=== PATIENT | male | born 1955 | race Caucasian/White ===

== ENCOUNTER 2018-01-12 18:58 | Inpatient (IN) | payer MEDICARE, OTHER ==
[~2018-01-12] VITALS: Ht 190.5 cm; Wt 107.7 kg
[~2018-01-12 18:58] MED LIST: GUAI120015 PO
[2018-01-12 19:39] LABS: BASOPHILS # (AUTO) 0.1 X10'3 (0-0.2); BASOPHILS % (AUTO) 1.3 % (0-1); EOSINOPHILS # (AUTO) 0.4 X10'3 (0-0.9); EOSINOPHILS % (AUTO) 4.8 % (0-6); HEMATOCRIT 47.9 % (42.0-52.0); HEMOGLOBIN 16.4 g/dl (14.0-17.9); LYMPHOCYTES # (AUTO) 2.1 X10'3 (1.1-4.8); LYMPHOCYTES % (AUTO) 24.3 % (21-51); MEAN CORPUSCULAR HGB CONC 34.2 % (33.0-36.5); MEAN CORPUSCULAR VOLUME 102.2 FL (78-98); MEAN PLATELET VOLUME 9.1 FL (7.4-10.4); MONOCYTES # (AUTO) 0.8 X10'3 (0-0.9); MONOCYTES % (AUTO) 9.7 % (2-12); NEUTROPHILS # (AUTO) 5.2 X10'3 (1.8-7.7); NEUTROPHILS % (AUTO) 59.9 % (42-75); PLATELET COUNT 180 X10'3 (140-440); RED BLOOD COUNT 4.68 X10'6 (4.70-6.10); RED CELL DISTRIBUTION WIDTH 13.8 % (11.5-14.5); WHITE BLOOD COUNT 8.6 X10'3 (4.5-11.0)
[2018-01-12 19:50] LABS: PARTIAL THROMBOPLASTIN TIME 26 SECONDS (22-32); PROTHROMBIN TIME 10.4 SECONDS (9.0-12.0)
[2018-01-12 19:53] LABS: ALANINE AMINOTRANSFERASE 42 U/L (12-78); ALBUMIN 3.7 G/DL (3.4-5.0); ALBUMIN/GLOBULIN RATIO 0.9 (1.1-1.5); ALKALINE PHOSPHATASE 79 IU/L (46-116); ANION GAP 9 (8-16); ASPARTATE AMINO TRANSFERASE 23 U/L (10-37); BILIRUBIN,TOTAL 0.4 MG/DL (0.1-1.0); BLOOD UREA NITROGEN 15 MG/DL (7-18); BUN/CREATININE RATIO 10.9 (5.4-32.0); CHLORIDE 106 MMOL/L (99-107); CREATININE 1.37 MG/DL (0.60-1.10); GLUCOSE 85 MG/DL (70-104); POTASSIUM 3.8 MMOL/L (3.5-5.1); SODIUM 143 MMOL/L (135-145); TOTAL CARBON DIOXIDE 28.5 MMOL/L (24-32); TOTAL PROTEIN 7.6 G/DL (6.4-8.2); eGFR 53 ML/MIN
[2018-01-12] MEDS ORDERED: morphine 4 MG/ML inj SYRINge IV ONE ×2 (21:00→23:40)
[2018-01-12] MEDS ORDERED: ondansetron/PF 4mg/2ml inj IV ONE (21:00)
[2018-01-12] MEDS ORDERED: iohexol 350MG/ML 100ml bottle IV ONE (21:01)
[2018-01-12] MEDS ORDERED: nitroGLYCERIN 0.4mg/hour patch TD ONE (23:40)
[2018-01-13] MEDS ORDERED: MULT-1180 (00:15)
[2018-01-13] MEDS ORDERED: OMEP40CA37 PO (00:15)
[2018-01-13] MEDS ORDERED: TIOT18CA3 (00:15)
[2018-01-13] MEDS ORDERED: MILK THISTLE140 M1 (00:15)
[2018-01-13] MEDS ORDERED: ALBU18HF2 INH (00:15)
[2018-01-13] MEDS ORDERED: OMEG1CAP PO (00:15)
[2018-01-13] MEDS ORDERED: ALBU8HFA PO (00:15)
[2018-01-13] MEDS ORDERED: ASPI-1265 PO (00:15)
[2018-01-13] MEDS ORDERED: ADV50250 INH (00:15)
[2018-01-13] MEDS ORDERED: UBID1CAP54 PO (00:15)
[2018-01-13] MEDS ORDERED: mag hydrox/Alum hydrox/simeth 30ml oral suspension PO PRN (00:40)
[2018-01-13] MEDS ORDERED: acetaminophen 325mg tablet PO PRN ×2 (00:40)
[2018-01-13] MEDS ORDERED: magnesium hydroxide 30ml (MOM) UD suspension PO PRN (00:40)
[2018-01-13] MEDS ORDERED: HYDROcodone/acetaminophen 10/325mg tab PO PRN (00:40)
[2018-01-13] MEDS ORDERED: HYDROcodone/acetaminophen 5mg/325mg tablet PO PRN (00:40)
[2018-01-13] MEDS ORDERED: ondansetron/PF 4mg/2ml inj IV PRN (00:40)
[2018-01-13] MEDS ORDERED: normal saline 1000ml 1,000 ML IV SCH (00:40)
[2018-01-13 01:30] VITALS: BP 129/84
[2018-01-13] MEDS ORDERED: enoxaparin 100mg/ml syringe SUBCUT STA (01:44)
[2018-01-13 06:00] VITALS: BP 111/79
[2018-01-13] MEDS ORDERED: SALMETEROL INH SCH (08:00)
[2018-01-13] MEDS ORDERED: FLUTICASONE INH SCH (08:00)
[2018-01-13] MEDS: omega-3 acid ethyl esters 1GM capsule PO SCH ×2 (08:09→20:24)
[2018-01-13] MEDS: pantoprazole 40mg Tablet.DR PO SCH (08:11)
[2018-01-13] MEDS: aspirin 81mg tab.chew PO SCH (08:13)
[2018-01-13] MEDS: albuterol 2.5 MG/3 ML nebule NEB SCH ×2 (08:16→11:45)
[2018-01-13] MEDS: BUDESONIDE 0.25 MG/2 ML AMPUL.NEB IH SCH ×2 (08:16→21:14)
[2018-01-13] MEDS: morphine 4 MG/ML inj SYRINge IV PRN (11:47)
[2018-01-13] MEDS: nitroGLYCERIN 0.2mg/hour patch TD SCH (12:41)
[2018-01-13] MEDS: metoprolol tartrate 12.5mg (1/2 tablet) PO SCH ×2 (12:41→20:24)
[2018-01-13 15:00] VITALS: BP 109/70
[2018-01-13 19:00] VITALS: BP 115/84
[2018-01-13] MEDS: enoxaparin 80mg/0.8ml syringe SUBCUT SCH (20:25)
[2018-01-13] MEDS: enoxaparin 30mg/0.3ml syringe SUBCUT SCH (20:27)
[2018-01-13] MEDS ORDERED: temazepam 15mg capsule PO PRN (21:00)
[2018-01-13 22:00] VITALS: BP 119/76
[2018-01-14] VITALS (17 sets, daily range): BP systolic 90–152; BP diastolic 52–89
[2018-01-14] MEDS: morphine 4 MG/ML inj SYRINge IV PRN ×5 (04:20→21:19)
[2018-01-14 06:25] LABS: BASOPHILS % (AUTO) 0.5 % (0-1); EOSINOPHILS # (AUTO) 0.3 X10'3 (0-0.9); EOSINOPHILS % (AUTO) 4.9 % (0-6); HEMATOCRIT 43.5 % (42.0-52.0); HEMOGLOBIN 15.1 g/dl (14.0-17.9); LYMPHOCYTES # (AUTO) 1.7 X10'3 (1.1-4.8); LYMPHOCYTES % (AUTO) 23.4 % (21-51); MEAN CORPUSCULAR HEMOGLOBIN 35.4 PG (27.0-31.0); MEAN CORPUSCULAR HGB CONC 34.8 % (33.0-36.5); MEAN CORPUSCULAR VOLUME 101.6 FL (78-98); MEAN PLATELET VOLUME 9.4 FL (7.4-10.4); MONOCYTES # (AUTO) 0.8 X10'3 (0-0.9); MONOCYTES % (AUTO) 11.6 % (2-12); NEUTROPHILS # (AUTO) 4.3 X10'3 (1.8-7.7); NEUTROPHILS % (AUTO) 59.6 % (42-75); PLATELET COUNT 139 X10'3 (140-440); RED BLOOD COUNT 4.28 X10'6 (4.70-6.10); RED CELL DISTRIBUTION WIDTH 13.9 % (11.5-14.5); WHITE BLOOD COUNT 7.1 X10'3 (4.5-11.0)
[2018-01-14 06:46] LABS: ALANINE AMINOTRANSFERASE 35 U/L (12-78); ALBUMIN 3.2 G/DL (3.4-5.0); ALBUMIN/GLOBULIN RATIO 0.9 (1.1-1.5); ALKALINE PHOSPHATASE 62 IU/L (46-116); ANION GAP 7 (8-16); ASPARTATE AMINO TRANSFERASE 37 U/L (10-37); BILIRUBIN,TOTAL 0.7 MG/DL (0.1-1.0); BLOOD UREA NITROGEN 11 MG/DL (7-18); BUN/CREATININE RATIO 9.6 (5.4-32.0); CALCIUM 8.7 MG/DL (8.5-10.1); CHLORIDE 106 MMOL/L (99-107); CHOL/HDL RATIO 4.4 (0.00-4.99); CHOLESTEROL 203 MG/DL (0-200); CREATININE 1.14 MG/DL (0.60-1.10); GLUCOSE 80 MG/DL (70-104); HDL CHOLESTEROL 46 MG/DL (35-60); LDL CHOLESTEROL 147 MG/DL (50-100); POTASSIUM 4.3 MMOL/L (3.5-5.1); SODIUM 141 MMOL/L (135-145); TOTAL CARBON DIOXIDE 28.5 MMOL/L (24-32); TOTAL PROTEIN 6.8 G/DL (6.4-8.2); TRIGLYCERIDES 68 MG/DL (20-135); eGFR 65 ML/MIN
[2018-01-14] MEDS: albuterol 2.5 MG/3 ML nebule NEB SCH ×5 (07:00→20:02)
[2018-01-14] MEDS: nitroGLYCERIN 0.2mg/hour patch TD SCH (07:11)
[2018-01-14] MEDS: omega-3 acid ethyl esters 1GM capsule PO SCH ×2 (07:14→20:32)
[2018-01-14] MEDS: enoxaparin 30mg/0.3ml syringe SUBCUT SCH ×2 (07:15→20:00)
[2018-01-14] MEDS: metoprolol tartrate 12.5mg (1/2 tablet) PO SCH (07:15)
[2018-01-14] MEDS: aspirin 81mg tab.chew PO SCH (07:15)
[2018-01-14] MEDS: enoxaparin 80mg/0.8ml syringe SUBCUT SCH ×2 (07:15→20:00)
[2018-01-14] MEDS: pantoprazole 40mg Tablet.DR PO SCH (07:15)
[2018-01-14] MEDS: Potassium Cl inj 20 MEQ in normal saline 1000ml 1,000 ML IV SCH ×2 (07:19→14:03)
[2018-01-14] MEDS: BUDESONIDE 0.25 MG/2 ML AMPUL.NEB IH SCH ×2 (09:34→20:02)
[2018-01-14] MEDS ORDERED: LIDOcaine 1% 30ml preserv. free vial ONE (09:41)
[2018-01-14] MEDS ORDERED: iohexol 350 MG/ML 50ML vial IV ONE (09:41)
[2018-01-14] MEDS ORDERED: midazolam 2 mg/2 ml injection ONE ×2 (09:41→10:13)
[2018-01-14] MEDS ORDERED: iohexol 350MG/ML 100ml bottle IV ONE (09:41)
[2018-01-14] MEDS ORDERED: fentaNYL/PF 50MCG/1 ML 2ML syringe ONE (09:42)
[2018-01-14] MEDS ORDERED: diphenhydrAMINE 50 mg/ml inj ONE (10:05)
[2018-01-14] MEDS ORDERED: metoprolol tartrate 1mg/ml inj IV ONE (10:34)
[2018-01-14] MEDS ORDERED: heparin 1,000unit/ml 10ml vial 10 ML ONE (10:51)
[2018-01-14] MEDS ORDERED: aspirin 81mg tab.chew PO ONE ×2 (11:50→13:25)
[2018-01-14] MEDS ORDERED: sodium chloride 0.45% 1,000 ML IV SCH (11:50)
[2018-01-14] MEDS ORDERED: nitroGLYCERIN 0.4mg SUBLingual tab SL PRN (11:50)
[2018-01-14] MEDS ORDERED: nitroGLYCERIN-Tridil 50MG/D5W 250 ML IV PRN ×2 (11:50→13:30)
[2018-01-14] MEDS ORDERED: OXAZEpam 15mg capsule PO PRN ×2 (11:55→13:30)
[2018-01-14] MEDS ORDERED: cyclobenzaprine 10mg tablet PO PRN ×2 (11:55→13:30)
[2018-01-14] MEDS ORDERED: acetaminophen 325mg tablet PO PRN ×2 (11:55→13:30)
[2018-01-14] MEDS ORDERED: dextrose 50%-water 50ml dispensing syringe IV PRN (11:55)
[2018-01-14] MEDS ORDERED: HYDROcodone/acetaminophen 10/325mg tab PO PRN ×2 (11:55)
[2018-01-14] MEDS ORDERED: morphine 4 MG/ML inj SYRINge IV PRN (11:55)
[2018-01-14] MEDS ORDERED: MESSAGE TO NURSING PO ONE ×2 (11:55)
[2018-01-14] MEDS ORDERED: magnesium hydroxide 30ml (MOM) UD suspension PO PRN ×2 (11:55→13:30)
[2018-01-14] MEDS ORDERED: proCHLORperazine 10 MG/2 ml inj IV PRN ×2 (11:55→13:30)
[2018-01-14] MEDS ORDERED: morphine 10mg/ml inj. IV PRN ×2 (11:55→13:30)
[2018-01-14 13:31] LABS: CLARITY,URINE CLEAR (Clear); COLOR,URINE STRAW (Yellow); GLUCOSE, URINE NEGATIVE (Neg); KETONES,URINE TRACE mg/dl (Neg); LEUKOCYTE ESTERASE ,URINE NEGATIVE (Neg); NITRITES, URINE NEGATIVE (Neg); OCCULT BLOOD,URINE NEGATIVE (Neg); PROTEIN,URINE NEGATIVE (Neg); UROBILINOGEN,URINE 0.2 E.U/dL (0.2-1.0)
[2018-01-14 13:32] LABS: UA COLLECTION TYPE NON-SPECIFIED
[2018-01-14 13:39] LABS: ALBUMIN 3.2 G/DL (3.4-5.0); ANION GAP 8 (8-16); BLOOD UREA NITROGEN 11 MG/DL (7-18); BUN/CREATININE RATIO 11.1 (5.4-32.0); CALCIUM 8.4 MG/DL (8.5-10.1); CHLORIDE 106 MMOL/L (99-107); CHOL/HDL RATIO 4.4 (0.00-4.99); CHOLESTEROL 209 MG/DL (0-200); CREATININE 0.99 MG/DL (0.60-1.10); GLUCOSE 71 MG/DL (70-104); HDL CHOLESTEROL 48 MG/DL (35-60); LDL CHOLESTEROL 145 MG/DL (50-100); POTASSIUM 3.9 MMOL/L (3.5-5.1); SODIUM 139 MMOL/L (135-145); TOTAL CARBON DIOXIDE 25.2 MMOL/L (24-32); TRIGLYCERIDES 35 MG/DL (20-135); eGFR 77 ML/MIN
[2018-01-14 13:40] LABS: HEMOGLOBIN A1C 5.7 % (4.5-6.2)
[2018-01-14 13:45] LABS: INR 1.1 INR; PROTHROMBIN TIME 11.4 SECONDS (9.0-12.0)
[2018-01-14 13:50] LABS: PARTIAL THROMBOPLASTIN TIME 120 SECONDS (22-32)
[2018-01-14] MEDS: sodium chloride 0.45% 1,000 ML IV SCH (16:55)
[2018-01-14] MEDS ORDERED: docusate sod 100mg capsule PO SCH (20:00)
[2018-01-14] MEDS: docusate sod 100mg capsule PO SCH (20:00)
[2018-01-14] MEDS: atorvastatin 20mg tablet PO SCH (20:31)
[2018-01-14] MEDS: metoprolol tartrate 25mg tablet PO SCH (20:32)
[2018-01-15] VITALS (24 sets, daily range): BP systolic 78–144; BP diastolic 53–92
[2018-01-15] MEDS: morphine 4 MG/ML inj SYRINge IV PRN ×3 (00:27→11:20)
[2018-01-15 02:44] LABS: BASOPHILS % (AUTO) 0.2 % (0-1); EOSINOPHILS # (AUTO) 0.3 X10'3 (0-0.9); EOSINOPHILS % (AUTO) 3.7 % (0-6); HEMATOCRIT 43.3 % (42.0-52.0); HEMOGLOBIN 14.8 g/dl (14.0-17.9); LYMPHOCYTES % (AUTO) 12.3 % (21-51); MEAN CORPUSCULAR HEMOGLOBIN 35.1 PG (27.0-31.0); MEAN CORPUSCULAR HGB CONC 34.2 % (33.0-36.5); MEAN CORPUSCULAR VOLUME 102.7 FL (78-98); MEAN PLATELET VOLUME 9.5 FL (7.4-10.4); MONOCYTES # (AUTO) 0.7 X10'3 (0-0.9); NEUTROPHILS # (AUTO) 6.2 X10'3 (1.8-7.7); NEUTROPHILS % (AUTO) 75.8 % (42-75); PLATELET COUNT 135 X10'3 (140-440); RED BLOOD COUNT 4.21 X10'6 (4.70-6.10); RED CELL DISTRIBUTION WIDTH 13.8 % (11.5-14.5); WHITE BLOOD COUNT 8.1 X10'3 (4.5-11.0)
[2018-01-15 02:56] LABS: ALBUMIN 2.9 G/DL (3.4-5.0); ANION GAP 7 (8-16); BLOOD UREA NITROGEN 11 MG/DL (7-18); BUN/CREATININE RATIO 11.6 (5.4-32.0); CALCIUM 8.2 MG/DL (8.5-10.1); CHLORIDE 104 MMOL/L (99-107); CREATININE 0.95 MG/DL (0.60-1.10); GLUCOSE 109 MG/DL (70-104); POTASSIUM 4.1 MMOL/L (3.5-5.1); SODIUM 137 MMOL/L (135-145); TOTAL CARBON DIOXIDE 25.6 MMOL/L (24-32); eGFR 80 ML/MIN
[2018-01-15] MEDS ORDERED: MESSAGE TO NURSING PO ONE (05:30)
[2018-01-15] MEDS: heparin 10,000 units/1 ML INJ IV PRN ×2 (06:01→17:56)
[2018-01-15] MEDS: sodium chloride 0.45% 1,000 ML IV SCH (06:05)
[2018-01-15] MEDS ORDERED: lisinopril 2.5mg tablet PO SCH ×2 (08:00)
[2018-01-15] MEDS: omega-3 acid ethyl esters 1GM capsule PO SCH ×2 (08:12→20:39)
[2018-01-15] MEDS: metoprolol tartrate 25mg tablet PO SCH ×2 (08:12→19:42)
[2018-01-15] MEDS: aspirin 81mg tab.chew PO SCH (08:12)
[2018-01-15] MEDS: docusate sod 100mg capsule PO SCH ×2 (08:13→20:39)
[2018-01-15] MEDS: atorvastatin 20mg tablet PO SCH (08:13)
[2018-01-15] MEDS: pantoprazole 40mg Tablet.DR PO SCH (08:13)
[2018-01-15] MEDS: albuterol 2.5 MG/3 ML nebule NEB SCH ×4 (08:14→21:23)
[2018-01-15] MEDS: BUDESONIDE 0.25 MG/2 ML AMPUL.NEB IH SCH ×2 (08:14→21:23)
[2018-01-15] MEDS: HYDROcodone/acetaminophen 10/325mg tab PO PRN ×3 (08:14→17:41)
[2018-01-15 17:10] LABS: ABG BASE EXCESS -0.6 mmol/L (-2.0-3.0); ABG OXYGEN SATURATION 91.2 % (95-98); ABG PCO2 (T) 35.4 mmHg (35.0-48.0); ABG PH (T) 7.431 (7.350-7.450); ALLEN'S TEST Positive; FCOHb 0.7 % (0.5-1.5); FLOW 2 L/min; FMetHb 0.2 % (0.3-1.12); FO2Hb 90.4 % (94-100); TOTAL HEMOGLOBIN 16.1 G/dl (14.0-18.0)
[2018-01-16] VITALS (19 sets, daily range): BP systolic 96–124; BP diastolic 56–75
[2018-01-16] MEDS: HYDROcodone/acetaminophen 10/325mg tab PO PRN ×2 (00:05→20:12)
[2018-01-16] MEDS: sodium chloride 0.45% 1,000 ML IV SCH ×2 (00:06→12:23)
[2018-01-16 00:40] LABS: BASOPHILS % (AUTO) 0.2 % (0-1); EOSINOPHILS # (AUTO) 0.1 X10'3 (0-0.9); EOSINOPHILS % (AUTO) 1.4 % (0-6); HEMATOCRIT 43.8 % (42.0-52.0); HEMOGLOBIN 15.1 g/dl (14.0-17.9); LYMPHOCYTES # (AUTO) 0.8 X10'3 (1.1-4.8); LYMPHOCYTES % (AUTO) 7.4 % (21-51); MEAN CORPUSCULAR HEMOGLOBIN 35.3 PG (27.0-31.0); MEAN CORPUSCULAR HGB CONC 34.6 % (33.0-36.5); MONOCYTES # (AUTO) 0.7 X10'3 (0-0.9); MONOCYTES % (AUTO) 6.6 % (2-12); NEUTROPHILS # (AUTO) 8.8 X10'3 (1.8-7.7); NEUTROPHILS % (AUTO) 84.4 % (42-75); PLATELET COUNT 130 X10'3 (140-440); RED BLOOD COUNT 4.29 X10'6 (4.70-6.10); RED CELL DISTRIBUTION WIDTH 13.6 % (11.5-14.5); WHITE BLOOD COUNT 10.4 X10'3 (4.5-11.0)
[2018-01-16 00:51] LABS: ALBUMIN 2.9 G/DL (3.4-5.0); ANION GAP 6 (8-16); BLOOD UREA NITROGEN 15 MG/DL (7-18); BUN/CREATININE RATIO 11.9 (5.4-32.0); CALCIUM 8.4 MG/DL (8.5-10.1); CHLORIDE 103 MMOL/L (99-107); CREATININE 1.26 MG/DL (0.60-1.10); GLUCOSE 95 MG/DL (70-104); SODIUM 138 MMOL/L (135-145); eGFR 58 ML/MIN
[2018-01-16] MEDS ORDERED: MESSAGE TO NURSING PO ONE ×2 (01:30→05:30)
[2018-01-16] MEDS ORDERED: vancomycin/NS 1 GM ADD-VANTAGE 250 ML IV ONE (05:30)
[2018-01-16] MEDS ORDERED: cefazolin/dext.iso 2gm/50ml 50 ML IV ONE (05:30)
[2018-01-16] MEDS ORDERED: famotidine 20mg tablet PO ONE (06:00)
[2018-01-16] MEDS ORDERED: LORazepam 2 mg/ml vial IV ONE (06:00)
[2018-01-16] MEDS: ringers solution, lacted 1,000 ML IV SCH (06:07)
[2018-01-16] MEDS ORDERED: LORazepam 2 mg/ml vial ONE (06:31)
[2018-01-16] MEDS ORDERED: heparin 10,000 units/1 ML INJ IR ONE (07:00)
[2018-01-16] MEDS ORDERED: papaverine 30 mg/ml 2ml inj. IA ONE (07:00)
[2018-01-16] MEDS: albuterol 2.5 MG/3 ML nebule NEB SCH ×4 (07:00→21:25)
[2018-01-16] MEDS ORDERED: SUFENTANIL CITRATE 50 MCG/ML 2ml ampule IV ONE ×2 (07:03→08:21)
[2018-01-16] MEDS ORDERED: MIDAZolam 1mg/ml 10ml vial ONE (07:03)
[2018-01-16] MEDS ORDERED: propofol inj 20 ML IV ONE (07:05)
[2018-01-16] MEDS ORDERED: aminocaproic acid 250 MG/1 ML inj. ONE (07:09)
[2018-01-16] MEDS ORDERED: heparin 1,000 units/ml 10ml inj ONE (07:09)
[2018-01-16] MEDS ORDERED: sodium bicarbonate (8.4%) 1 mEq/ml syringe ONE (07:09)
[2018-01-16] MEDS ORDERED: sevoflurane 250ml liquid IH ONE (07:09)
[2018-01-16] MEDS ORDERED: LIDOcaine 2% (20 mg/ml) 5ml cardiac syringe ONE (07:09)
[2018-01-16] MEDS ORDERED: phenylephrine 10mg/ml inj. ONE (07:09)
[2018-01-16] MEDS ORDERED: pancuronium br 1mg/ml inj IV ONE ×2 (07:09→11:13)
[2018-01-16] MEDS ORDERED: potassium Cl 2 mEq/ml inj IV ONE (07:09)
[2018-01-16] MEDS ORDERED: albumin (human) 25% 100 ML IV solution IV ONE (07:09)
[2018-01-16] MEDS ORDERED: protamine sulf. 10mg/ml inj. IV ONE (07:09)
[2018-01-16] MEDS ORDERED: magnesium sulf 1 GM/2 ML ONE (07:09)
[2018-01-16] MEDS ORDERED: calcium chloride 100 MG/1 ML inj IV ONE (07:09)
[2018-01-16] MEDS ORDERED: methylPREDNISolone sod. succ. 500mg inj ONE (07:09)
[2018-01-16] MEDS ORDERED: heparin 10,000 units/1 ML INJ ONE ×2 (07:09→09:00)
[2018-01-16] MEDS ORDERED: mupirocin 2% nasal ointment 1gm UD NS SCH (08:00)
[2018-01-16] MEDS: BUDESONIDE 0.25 MG/2 ML AMPUL.NEB IH SCH ×2 (08:00→21:26)
[2018-01-16] MEDS: omega-3 acid ethyl esters 1GM capsule PO SCH ×2 (08:00→20:08)
[2018-01-16] MEDS: atorvastatin 20mg tablet PO SCH (08:00)
[2018-01-16 08:01] LABS: ABG BASE EXCESS -2.6 mmol/L (-2.0-3.0); ABG HCO3 25.1 mmol/L (22.0-26.0); ABG OXYGEN SATURATION 99.6 % (95-98); ABG PCO2 55.6 mmHg (35.0-45.0); ABG PH 7.273 (7.350-7.450); ABG PO2 318.4 mmHg (60.0-100.0); CL (ABG) 104 mmol/L (99-107); FCOHb 0.5 % (0.5-1.5); FMetHb 0.4 % (0.3-1.12); FO2Hb 98.7 % (94-100); GLUCOSE (ABG) 90 mg/dl (70-105); IONIZED CA (ABG) 1.15 mmol/L (1.03-1.32); K (ABG) 4.1 mmol/L (3.3-5.1); NA (ABG) 134 mmol/L (135-145); TOTAL HEMOGLOBIN 14.7 G/dl (14.0-18.0)
[2018-01-16] MEDS ORDERED: papaverine 30 mg/ml 2ml inj. ONE (09:00)
[2018-01-16] MEDS: insulin Lispro (HumaLOG) vial - multi-dose SQ SCH ×3 (09:00→18:00)
[2018-01-16 09:10] LABS: ABG BASE EXCESS VENOUS -2.6 mmol/L; ABG HCO3 VENOUS 24.5 mmol/L; ABG PCO2 VENOUS 51.4 mmHg; ABG PO2 VENOUS 61.7 mmHg; CL (ABG) 104 mmol/L (99-107); FCOHb VENOUS 0.9 %; FHHb VENOUS 10.3 %; FMetHb VENOUS 0.2 %; FO2Hb VENOUS 88.6 %; GLUCOSE (ABG) 81 mg/dl (70-105); IONIZED CA (ABG) 1.11 mmol/L (1.03-1.32); K (ABG) 4.7 mmol/L (3.3-5.1); NA (ABG) 133 mmol/L (135-145); TOTAL HEMOGLOBIN 14.7 G/dl (14.0-18.0)
[2018-01-16 09:41] LABS: ABG BASE EXCESS -0.5 mmol/L (-2.0-3.0); ABG HCO3 24.8 mmol/L (22.0-26.0); ABG OXYGEN SATURATION 99.5 % (95-98); ABG PCO2 43.2 mmHg (35.0-45.0); ABG PH 7.377 (7.350-7.450); ABG PO2 546.1 mmHg (60.0-100.0); CL (ABG) 102 mmol/L (99-107); FCOHb 0.1 % (0.5-1.5); FMetHb 0.5 % (0.3-1.12); FO2Hb 98.9 % (94-100); GLUCOSE (ABG) 95 mg/dl (70-105); IONIZED CA (ABG) 1.01 mmol/L (1.03-1.32); K (ABG) 5.6 mmol/L (3.3-5.1); NA (ABG) 130 mmol/L (135-145); TOTAL HEMOGLOBIN 11.8 G/dl (14.0-18.0)
[2018-01-16 10:01] LABS: ABG BASE EXCESS VENOUS -3.3 mmol/L; ABG HCO3 VENOUS 22.1 mmol/L; ABG PCO2 VENOUS 41.5 mmHg; ABG PO2 VENOUS 55.4 mmHg; CL (ABG) 103 mmol/L (99-107); FCOHb VENOUS 0.5 %; FHHb VENOUS 11.9 %; FMetHb VENOUS 0.5 %; FO2Hb VENOUS 87.1 %; GLUCOSE (ABG) 107 mg/dl (70-105); K (ABG) 6.5 mmol/L (3.3-5.1); NA (ABG) 130 mmol/L (135-145); TOTAL HEMOGLOBIN 11.9 G/dl (14.0-18.0)
[2018-01-16] MEDS ORDERED: albumin (Human) 5% 250ml 250 ML IV ONE (10:23)
[2018-01-16 10:26] LABS: ABG BASE EXCESS -1.9 mmol/L (-2.0-3.0); ABG HCO3 22.7 mmol/L (22.0-26.0); ABG OXYGEN SATURATION 99.3 % (95-98); ABG PCO2 37.9 mmHg (35.0-45.0); ABG PH 7.395 (7.350-7.450); ABG PO2 423.9 mmHg (60.0-100.0); CL (ABG) 102 mmol/L (99-107); FCOHb 0.2 % (0.5-1.5); FMetHb 0.5 % (0.3-1.12); FO2Hb 98.6 % (94-100); GLUCOSE (ABG) 110 mg/dl (70-105); IONIZED CA (ABG) 1.14 mmol/L (1.03-1.32); NA (ABG) 129 mmol/L (135-145); TOTAL HEMOGLOBIN 11.3 G/dl (14.0-18.0)
[2018-01-16 10:51] LABS: ABG BASE EXCESS VENOUS -3.5 mmol/L; ABG HCO3 VENOUS 22.7 mmol/L; ABG PCO2 VENOUS 45.4 mmHg; CL (ABG) 102 mmol/L (99-107); FCOHb VENOUS 0.5 %; FHHb VENOUS 14.6 %; FMetHb VENOUS 0.5 %; FO2Hb VENOUS 84.4 %; GLUCOSE (ABG) 99 mg/dl (70-105); IONIZED CA (ABG) 1.17 mmol/L (1.03-1.32); K (ABG) 5.4 mmol/L (3.3-5.1); NA (ABG) 132 mmol/L (135-145); TOTAL HEMOGLOBIN 11.5 G/dl (14.0-18.0)
[2018-01-16] MEDS ORDERED: DOPamine 400mg/D5W 250ml 250 ML IV PRN (11:43)
[2018-01-16] MEDS ORDERED: nitroGLYCERIN-Tridil 50MG/D5W 250 ML IV PRN (11:43)
[2018-01-16] MEDS ORDERED: niCARDipine/sod cl 20mg/200ml 200 ML IV PRN (11:43)
[2018-01-16] MEDS ORDERED: ondansetron/PF 4mg/2ml inj IV PRN (11:45)
[2018-01-16] MEDS ORDERED: Neutra Phos packet PO PRN (11:45)
[2018-01-16] MEDS ORDERED: metoclopramide 5 mg/ml inj IV PRN (11:45)
[2018-01-16] MEDS ORDERED: insulin regular, human inj. 100 UNITS in normal saline 100ml IV soln 100 ML IV SCH ×2 (11:45)
[2018-01-16] MEDS ORDERED: dextrose 50%-water 50ml dispensing syringe IV PRN (11:45)
[2018-01-16] MEDS ORDERED: magnesium 4gm in 100ml NS 100 ML IV PRN (11:45)
[2018-01-16] MEDS ORDERED: potassium Cl 20mEq/100mL bag 100 ML IV PRN ×3 (11:45)
[2018-01-16] MEDS ORDERED: acetaminophen 325mg tablet PO PRN (11:45)
[2018-01-16] MEDS ORDERED: magnesium 1gm/100ml D5W IVPB 100 ML IV PRN (11:45)
[2018-01-16] MEDS ORDERED: sodium phosphate inj. 15 MMOL in dextrose 5%-water 150 ML IV PRN (11:45)
[2018-01-16] MEDS ORDERED: sodium phosphate inj. 30 MMOL in dextrose 5%-water 250 ML IV PRN (11:45)
[2018-01-16] MEDS ORDERED: normal saline 250ml IV soln 250 ML IV PRN (11:45)
[2018-01-16] MEDS ORDERED: magnesium hydroxide 30ml (MOM) UD suspension PO PRN (11:45)
[2018-01-16 12:00] LABS: ABG BASE EXCESS -4.3 mmol/L (-2.0-3.0); ABG HCO3 23.7 mmol/L (22.0-26.0); ABG OXYGEN SATURATION 98.9 % (95-98); ABG PCO2 (T) 55.1 mmHg (35.0-48.0); ABG PH (T) 7.252 (7.350-7.450); FCOHb 0.5 % (0.5-1.5); FMetHb 0.5 % (0.3-1.12); FO2Hb 97.9 % (94-100); MINUTE VOLUME 9 L/min; PATIENT TEMPERATURE 37.2; PEEP 5 cm H2O; RESPIRATORY RATE 12 b/min; RESPIRATORY RATE (OBSERVED) 12 b/min; TIDAL VOLUME 650 mL; TOTAL HEMOGLOBIN 15.4 G/dl (14.0-18.0)
[2018-01-16 12:09] LABS: BASOPHILS % (AUTO) 0.1 % (0-1); EOSINOPHILS # (AUTO) 0.1 X10'3 (0-0.9); EOSINOPHILS % (AUTO) 0.5 % (0-6); HEMATOCRIT 42.4 % (42.0-52.0); HEMOGLOBIN 14.6 g/dl (14.0-17.9); LYMPHOCYTES # (AUTO) 0.9 X10'3 (1.1-4.8); LYMPHOCYTES % (AUTO) 7.5 % (21-51); MEAN CORPUSCULAR HEMOGLOBIN 35.5 PG (27.0-31.0); MEAN CORPUSCULAR HGB CONC 34.5 % (33.0-36.5); MEAN CORPUSCULAR VOLUME 102.9 FL (78-98); MEAN PLATELET VOLUME 9.2 FL (7.4-10.4); MONOCYTES # (AUTO) 0.6 X10'3 (0-0.9); MONOCYTES % (AUTO) 4.8 % (2-12); NEUTROPHILS # (AUTO) 10.3 X10'3 (1.8-7.7); NEUTROPHILS % (AUTO) 87.1 % (42-75); PLATELET COUNT 90 X10'3 (140-440); RED BLOOD COUNT 4.12 X10'6 (4.70-6.10); RED CELL DISTRIBUTION WIDTH 13.3 % (11.5-14.5); WHITE BLOOD COUNT 11.8 X10'3 (4.5-11.0)
[2018-01-16] MEDS: morphine 4 MG/ML inj SYRINge IV PRN ×5 (12:13→22:24)
[2018-01-16 12:19] LABS: INR 1.2 INR; PARTIAL THROMBOPLASTIN TIME 37 SECONDS (22-32)
[2018-01-16 12:23] LABS: ALANINE AMINOTRANSFERASE 24 U/L (12-78); ALBUMIN 2.7 G/DL (3.4-5.0); ALBUMIN/GLOBULIN RATIO 0.9 (1.1-1.5); ALKALINE PHOSPHATASE 44 IU/L (46-116); ANION GAP 6 (8-16); ASPARTATE AMINO TRANSFERASE 53 U/L (10-37); BILIRUBIN,TOTAL 1.2 MG/DL (0.1-1.0); BLOOD UREA NITROGEN 14 MG/DL (7-18); BUN/CREATININE RATIO 12.5 (5.4-32.0); CALCIUM 7.7 MG/DL (8.5-10.1); CHLORIDE 104 MMOL/L (99-107); CREATININE 1.12 MG/DL (0.60-1.10); GLUCOSE 120 MG/DL (70-104); MAGNESIUM 2.5 MG/DL (1.5-2.4); PHOSPHORUS 3.1 MG/DL (2.3-4.5); SODIUM 136 MMOL/L (135-145); TOTAL CARBON DIOXIDE 25.7 MMOL/L (24-32); TOTAL PROTEIN 5.6 G/DL (6.4-8.2); eGFR 66 ML/MIN
[2018-01-16] MEDS ORDERED: insulin Lispro (HumaLOG) vial - multi-dose SQ SCH (13:00)
[2018-01-16] MEDS: albumin (Human) 5% 250ml 250 ML IV PRN ×3 (13:35→15:59)
[2018-01-16 15:21] LABS: ABG BASE EXCESS -5.4 mmol/L (-2.0-3.0); ABG OXYGEN SATURATION 97.8 % (95-98); ABG PCO2 (T) 33.8 mmHg (35.0-48.0); ABG PH (T) 7.367 (7.350-7.450); ABG PO2 (T) 106.5 mmHg (83-108); FCOHb 0.6 % (0.5-1.5); FMetHb 0.2 % (0.3-1.12); MINUTE VOLUME 11 L/min; PATIENT TEMPERATURE 36.9; PEEP 5 cm H2O; RESPIRATORY RATE (OBSERVED) 13 b/min; TOTAL HEMOGLOBIN 14.2 G/dl (14.0-18.0)
[2018-01-16] MEDS: ceFAZolin 1GM/D5W- ADD-VANTAGE 50 ML IV SCH (15:34)
[2018-01-16 18:17] LABS: BASOPHILS % (AUTO) 0 % (0-1); EOSINOPHILS % (AUTO) 0 % (0-6); HEMATOCRIT 37.3 % (42.0-52.0); HEMOGLOBIN 12.8 g/dl (14.0-17.9); LYMPHOCYTES # (AUTO) 0.3 X10'3 (1.1-4.8); LYMPHOCYTES % (AUTO) 3.1 % (21-51); MEAN CORPUSCULAR HEMOGLOBIN 35.2 PG (27.0-31.0); MEAN CORPUSCULAR HGB CONC 34.3 % (33.0-36.5); MEAN CORPUSCULAR VOLUME 102.6 FL (78-98); MEAN PLATELET VOLUME 9.5 FL (7.4-10.4); MONOCYTES # (AUTO) 0.2 X10'3 (0-0.9); NEUTROPHILS # (AUTO) 9.7 X10'3 (1.8-7.7); NEUTROPHILS % (AUTO) 94.9 % (42-75); PLATELET COUNT 83 X10'3 (140-440); RED BLOOD COUNT 3.64 X10'6 (4.70-6.10); RED CELL DISTRIBUTION WIDTH 13.3 % (11.5-14.5); WHITE BLOOD COUNT 10.2 X10'3 (4.5-11.0)
[2018-01-16 18:26] LABS: ALBUMIN 3.2 G/DL (3.4-5.0); ANION GAP 7 (8-16); BLOOD UREA NITROGEN 16 MG/DL (7-18); BUN/CREATININE RATIO 14.7 (5.4-32.0); CALCIUM 7.7 MG/DL (8.5-10.1); CHLORIDE 106 MMOL/L (99-107); CREATININE 1.09 MG/DL (0.60-1.10); GLUCOSE 150 MG/DL (70-104); POTASSIUM 4.6 MMOL/L (3.5-5.1); SODIUM 138 MMOL/L (135-145); TOTAL CARBON DIOXIDE 25.3 MMOL/L (24-32); eGFR 69 ML/MIN
[2018-01-16] MEDS: insulin regular, human inj. 100 UNITS in normal saline 100ml IV soln 100 ML IV SCH ×2 (18:43)
[2018-01-16 18:53] LABS: MAGNESIUM 2.2 MG/DL (1.5-2.4)
[2018-01-16] MEDS: docusate sod 100mg capsule PO SCH (20:08)
[2018-01-16] MEDS: mupirocin 2% nasal ointment 1gm UD NS SCH (20:09)
[2018-01-16] MEDS: vancomycin/NS 1 GM ADD-VANTAGE 250 ML IV SCH (20:16)
[2018-01-17] VITALS (19 sets, daily range): BP systolic 92–128; BP diastolic 54–78
[2018-01-17] MEDS: HYDROcodone/acetaminophen 10/325mg tab PO PRN ×6 (00:13→22:55)
[2018-01-17] MEDS: ringers solution, lacted 1,000 ML IV SCH ×2 (01:05→21:05)
[2018-01-17] MEDS: morphine 4 MG/ML inj SYRINge IV PRN ×4 (01:33→19:34)
[2018-01-17] MEDS: ceFAZolin 1GM/D5W- ADD-VANTAGE 50 ML IV SCH ×4 (01:38→23:55)
[2018-01-17 04:51] LABS: BASOPHILS % (AUTO) 0 % (0-1); EOSINOPHILS # (AUTO) 0.2 X10'3 (0-0.9); EOSINOPHILS % (AUTO) 1.2 % (0-6); HEMATOCRIT 36.7 % (42.0-52.0); HEMOGLOBIN 12.5 g/dl (14.0-17.9); LYMPHOCYTES # (AUTO) 0.6 X10'3 (1.1-4.8); LYMPHOCYTES % (AUTO) 3.9 % (21-51); MEAN CORPUSCULAR HEMOGLOBIN 34.9 PG (27.0-31.0); MEAN CORPUSCULAR HGB CONC 33.9 % (33.0-36.5); MONOCYTES # (AUTO) 0.8 X10'3 (0-0.9); MONOCYTES % (AUTO) 5.7 % (2-12); NEUTROPHILS # (AUTO) 12.9 X10'3 (1.8-7.7); NEUTROPHILS % (AUTO) 89.2 % (42-75); PLATELET COUNT 85 X10'3 (140-440); RED BLOOD COUNT 3.57 X10'6 (4.70-6.10); RED CELL DISTRIBUTION WIDTH 13.5 % (11.5-14.5); WHITE BLOOD COUNT 14.4 X10'3 (4.5-11.0)
[2018-01-17 05:05] LABS: ALANINE AMINOTRANSFERASE 35 U/L (12-78); ALBUMIN/GLOBULIN RATIO 1.1 (1.1-1.5); ALKALINE PHOSPHATASE 34 IU/L (46-116); ANION GAP 8 (8-16); ASPARTATE AMINO TRANSFERASE 93 U/L (10-37); BILIRUBIN,TOTAL 0.6 MG/DL (0.1-1.0); BLOOD UREA NITROGEN 17 MG/DL (7-18); BUN/CREATININE RATIO 15.9 (5.4-32.0); CALCIUM 7.7 MG/DL (8.5-10.1); CHLORIDE 105 MMOL/L (99-107); CREATININE 1.07 MG/DL (0.60-1.10); GLUCOSE 135 MG/DL (70-104); MAGNESIUM 2.1 MG/DL (1.5-2.4); PHOSPHORUS 2.5 MG/DL (2.3-4.5); POTASSIUM 4.4 MMOL/L (3.5-5.1); SODIUM 136 MMOL/L (135-145); TOTAL CARBON DIOXIDE 23.4 MMOL/L (24-32); TOTAL PROTEIN 5.8 G/DL (6.4-8.2); eGFR 70 ML/MIN
[2018-01-17] MEDS: insulin regular, human inj. 100 UNITS in normal saline 100ml IV soln 100 ML IV SCH ×2 (05:30)
[2018-01-17 06:24] LABS: INR 1.1 INR; PROTHROMBIN TIME 11.6 SECONDS (9.0-12.0)
[2018-01-17 06:25] LABS: PARTIAL THROMBOPLASTIN TIME 32 SECONDS (22-32)
[2018-01-17] MEDS: albuterol 2.5 MG/3 ML nebule NEB SCH ×4 (06:45→18:46)
[2018-01-17] MEDS: BUDESONIDE 0.25 MG/2 ML AMPUL.NEB IH SCH ×2 (06:45→18:46)
[2018-01-17] MEDS ORDERED: atorvastatin 10mg tablet PO SCH (08:00)
[2018-01-17] MEDS: pantoprazole 40mg Tablet.DR PO SCH (08:00)
[2018-01-17] MEDS: aspirin 325mg tablet, delayed-release (Ecotrin) PO SCH (08:00)
[2018-01-17] MEDS: atorvastatin 20mg tablet PO SCH (08:00)
[2018-01-17] MEDS: docusate sod 100mg capsule PO SCH ×2 (08:00→20:00)
[2018-01-17] MEDS: omega-3 acid ethyl esters 1GM capsule PO SCH ×2 (08:00→19:34)
[2018-01-17] MEDS: metoprolol tartrate 12.5mg (1/2 tablet) PO SCH ×2 (08:01→20:00)
[2018-01-17] MEDS: vancomycin/NS 1 GM ADD-VANTAGE 250 ML IV SCH ×2 (08:02→19:34)
[2018-01-17] MEDS: mupirocin 2% nasal ointment 1gm UD NS SCH ×2 (08:18→19:35)
[2018-01-17] MEDS: insulin Lispro (HumaLOG) vial - multi-dose SQ SCH (09:00)
[2018-01-17] MEDS: diphenhydrAMINE 25mg capsule PO PRN (20:19)
[2018-01-17] MEDS: albuterol 2.5 MG/3 ML nebule NEB PRN (23:15)
[2018-01-18] VITALS (23 sets, daily range): BP systolic 94–130; BP diastolic 61–83
[2018-01-18] MEDS: albuterol 2.5 MG/3 ML nebule NEB PRN ×2 (03:28→23:58)
[2018-01-18] MEDS: HYDROcodone/acetaminophen 10/325mg tab PO PRN ×4 (03:29→23:59)
[2018-01-18 03:46] LABS: BASOPHILS % (AUTO) 0 % (0-1); EOSINOPHILS % (AUTO) 0.1 % (0-6); HEMATOCRIT 33.3 % (42.0-52.0); HEMOGLOBIN 11.3 g/dl (14.0-17.9); LYMPHOCYTES # (AUTO) 0.7 X10'3 (1.1-4.8); LYMPHOCYTES % (AUTO) 6.5 % (21-51); MEAN CORPUSCULAR VOLUME 102.7 FL (78-98); MEAN PLATELET VOLUME 9.9 FL (7.4-10.4); MONOCYTES # (AUTO) 1.2 X10'3 (0-0.9); MONOCYTES % (AUTO) 10.6 % (2-12); NEUTROPHILS # (AUTO) 9.1 X10'3 (1.8-7.7); NEUTROPHILS % (AUTO) 82.8 % (42-75); PLATELET COUNT 68 X10'3 (140-440); RED BLOOD COUNT 3.24 X10'6 (4.70-6.10); RED CELL DISTRIBUTION WIDTH 13.4 % (11.5-14.5)
[2018-01-18 04:04] LABS: ALBUMIN 2.8 G/DL (3.4-5.0); ANION GAP 5 (8-16); BLOOD UREA NITROGEN 18 MG/DL (7-18); BUN/CREATININE RATIO 17.3 (5.4-32.0); CALCIUM 7.7 MG/DL (8.5-10.1); CHLORIDE 105 MMOL/L (99-107); CREATININE 1.04 MG/DL (0.60-1.10); GLUCOSE 118 MG/DL (70-104); MAGNESIUM 1.9 MG/DL (1.5-2.4); POTASSIUM 4.5 MMOL/L (3.5-5.1); SODIUM 138 MMOL/L (135-145); TOTAL CARBON DIOXIDE 27.9 MMOL/L (24-32); eGFR 72 ML/MIN
[2018-01-18] MEDS: diphenhydrAMINE 25mg capsule PO PRN ×2 (05:27→12:33)
[2018-01-18] MEDS: docusate sod 100mg capsule PO SCH ×2 (07:18→19:43)
[2018-01-18] MEDS: metoprolol tartrate 12.5mg (1/2 tablet) PO SCH ×2 (07:18→19:40)
[2018-01-18] MEDS: omega-3 acid ethyl esters 1GM capsule PO SCH ×2 (07:19→19:44)
[2018-01-18] MEDS: atorvastatin 20mg tablet PO SCH (07:19)
[2018-01-18] MEDS: mupirocin 2% nasal ointment 1gm UD NS SCH (07:19)
[2018-01-18] MEDS: pantoprazole 40mg Tablet.DR PO SCH (07:19)
[2018-01-18] MEDS: aspirin 325mg tablet, delayed-release (Ecotrin) PO SCH (07:20)
[2018-01-18] MEDS: albuterol 2.5 MG/3 ML nebule NEB SCH ×4 (07:29→19:19)
[2018-01-18] MEDS: BUDESONIDE 0.25 MG/2 ML AMPUL.NEB IH SCH ×2 (07:34→19:19)
[2018-01-18] MEDS: morphine 4 MG/ML inj SYRINge IV PRN ×3 (08:55→20:52)
[2018-01-18] MEDS: sodium chloride 0.45% 1,000 ML IV SCH (11:43)
[2018-01-18] MEDS: ringers solution, lacted 1,000 ML IV SCH (17:05)
[2018-01-19] VITALS (16 sets, daily range): BP systolic 94–127; BP diastolic 61–89
[2018-01-19] MEDS: albuterol 2.5 MG/3 ML nebule NEB PRN (04:09)
[2018-01-19] MEDS: HYDROcodone/acetaminophen 10/325mg tab PO PRN ×4 (04:24→19:57)
[2018-01-19 05:34] LABS: BASOPHILS % (AUTO) 0.3 % (0-1); EOSINOPHILS # (AUTO) 0.1 X10'3 (0-0.9); EOSINOPHILS % (AUTO) 1.7 % (0-6); HEMATOCRIT 31.3 % (42.0-52.0); HEMOGLOBIN 10.5 g/dl (14.0-17.9); LYMPHOCYTES # (AUTO) 0.9 X10'3 (1.1-4.8); LYMPHOCYTES % (AUTO) 12.5 % (21-51); MEAN CORPUSCULAR HEMOGLOBIN 34.9 PG (27.0-31.0); MEAN CORPUSCULAR HGB CONC 33.6 % (33.0-36.5); MEAN CORPUSCULAR VOLUME 103.8 FL (78-98); MEAN PLATELET VOLUME 10.4 FL (7.4-10.4); MONOCYTES % (AUTO) 13.2 % (2-12); NEUTROPHILS # (AUTO) 5.5 X10'3 (1.8-7.7); NEUTROPHILS % (AUTO) 72.3 % (42-75); PLATELET COUNT 71 X10'3 (140-440); RED BLOOD COUNT 3.02 X10'6 (4.70-6.10); RED CELL DISTRIBUTION WIDTH 13.6 % (11.5-14.5); WHITE BLOOD COUNT 7.6 X10'3 (4.5-11.0)
[2018-01-19 06:10] LABS: ALBUMIN 2.6 G/DL (3.4-5.0); ANION GAP 7 (8-16); BLOOD UREA NITROGEN 15 MG/DL (7-18); BUN/CREATININE RATIO 15.6 (5.4-32.0); CALCIUM 7.9 MG/DL (8.5-10.1); CHLORIDE 104 MMOL/L (99-107); CREATININE 0.96 MG/DL (0.60-1.10); GLUCOSE 98 MG/DL (70-104); MAGNESIUM 2.1 MG/DL (1.5-2.4); PHOSPHORUS 2.4 MG/DL (2.3-4.5); POTASSIUM 3.8 MMOL/L (3.5-5.1); SODIUM 138 MMOL/L (135-145); TOTAL CARBON DIOXIDE 27.5 MMOL/L (24-32); eGFR 79 ML/MIN
[2018-01-19] MEDS: morphine 4 MG/ML inj SYRINge IV PRN (06:56)
[2018-01-19] MEDS: albuterol 2.5 MG/3 ML nebule NEB SCH ×4 (06:59→19:00)
[2018-01-19] MEDS: BUDESONIDE 0.25 MG/2 ML AMPUL.NEB IH SCH ×2 (06:59→20:14)
[2018-01-19] MEDS ORDERED: magnesium 1gm/100ml D5W IVPB 100 ML IV PRN (07:05)
[2018-01-19] MEDS ORDERED: magnesium Cl slow-release 64mg tablet PO PRN (07:05)
[2018-01-19] MEDS ORDERED: magnesium 4gm in 100ml NS 100 ML IV PRN (07:05)
[2018-01-19] MEDS ORDERED: potassium Cl 40MEQ/NS 500ml 500 ML IV PRN ×2 (07:05)
[2018-01-19] MEDS ORDERED: potassium Cl 20 mEq SR tablet PO PRN ×2 (07:05)
[2018-01-19] MEDS: K and/or MAG REPLACEMENT MC SCH (07:21)
[2018-01-19] MEDS ORDERED: magnesium citrate 296ml oral solution PO ONE (07:25)
[2018-01-19] MEDS: pantoprazole 40mg Tablet.DR PO SCH (07:40)
[2018-01-19] MEDS: metoprolol tartrate 12.5mg (1/2 tablet) PO SCH ×2 (07:41→19:56)
[2018-01-19] MEDS: magnesium Cl slow-release 64mg tablet PO SCH ×2 (07:41→19:56)
[2018-01-19] MEDS: aspirin 81mg tab.chew PO SCH (07:41)
[2018-01-19] MEDS: omega-3 acid ethyl esters 1GM capsule PO SCH ×2 (07:42→19:58)
[2018-01-19] MEDS: potassium Cl 20 mEq SR tablet PO SCH ×2 (07:42→20:00)
[2018-01-19] MEDS: atorvastatin 20mg tablet PO SCH (07:42)
[2018-01-19] MEDS: docusate sod 100mg capsule PO SCH ×2 (07:42→19:55)
[2018-01-19 08:52] LABS: LARGE PLATELETS FEW; PLATELET ESTIMATE DECREASED
[2018-01-20] VITALS (12 sets, daily range): BP systolic 100–132; BP diastolic 67–78
[2018-01-20] MEDS: albuterol 2.5 MG/3 ML nebule NEB PRN (01:34)
[2018-01-20] MEDS: HYDROcodone/acetaminophen 10/325mg tab PO PRN ×5 (02:43→20:31)
[2018-01-20] MEDS ORDERED: amiodarone 150mg/dext, iso-os 100 ML IV ONE (03:25)
[2018-01-20] MEDS: amiodarone/D5 360MG/200ML BAG 200 ML IV SCH ×3 (04:02→17:10)
[2018-01-20 06:09] LABS: BASOPHILS % (AUTO) 0.2 % (0-1); EOSINOPHILS # (AUTO) 0.3 X10'3 (0-0.9); EOSINOPHILS % (AUTO) 4.2 % (0-6); HEMATOCRIT 30.9 % (42.0-52.0); HEMOGLOBIN 10.6 g/dl (14.0-17.9); LYMPHOCYTES % (AUTO) 11.8 % (21-51); MEAN CORPUSCULAR HGB CONC 34.2 % (33.0-36.5); MEAN CORPUSCULAR VOLUME 102.3 FL (78-98); MEAN PLATELET VOLUME 9.7 FL (7.4-10.4); MONOCYTES # (AUTO) 0.9 X10'3 (0-0.9); MONOCYTES % (AUTO) 11.3 % (2-12); NEUTROPHILS # (AUTO) 5.9 X10'3 (1.8-7.7); NEUTROPHILS % (AUTO) 72.5 % (42-75); PLATELET COUNT 89 X10'3 (140-440); RED BLOOD COUNT 3.02 X10'6 (4.70-6.10); RED CELL DISTRIBUTION WIDTH 13.6 % (11.5-14.5); WHITE BLOOD COUNT 8.1 X10'3 (4.5-11.0)
[2018-01-20 07:02] LABS: ALBUMIN 2.5 G/DL (3.4-5.0); ANION GAP 7 (8-16); BLOOD UREA NITROGEN 16 MG/DL (7-18); BUN/CREATININE RATIO 14.8 (5.4-32.0); CHLORIDE 103 MMOL/L (99-107); CREATININE 1.08 MG/DL (0.60-1.10); GLUCOSE 97 MG/DL (70-104); MAGNESIUM 1.7 MG/DL (1.5-2.4); POTASSIUM 4.4 MMOL/L (3.5-5.1); SODIUM 136 MMOL/L (135-145); TOTAL CARBON DIOXIDE 25.6 MMOL/L (24-32); eGFR 69 ML/MIN
[2018-01-20] MEDS ORDERED: furosemide 40mg/4ml inj IV ONE (07:25)
[2018-01-20] MEDS: magnesium Cl slow-release 64mg tablet PO SCH ×2 (07:35→20:26)
[2018-01-20] MEDS: docusate sod 100mg capsule PO SCH ×2 (07:36→20:25)
[2018-01-20] MEDS: metoprolol tartrate 12.5mg (1/2 tablet) PO SCH ×2 (07:36→20:26)
[2018-01-20] MEDS: pantoprazole 40mg Tablet.DR PO SCH (07:37)
[2018-01-20] MEDS: potassium Cl 20 mEq SR tablet PO SCH ×2 (07:37→20:26)
[2018-01-20] MEDS: atorvastatin 20mg tablet PO SCH (07:37)
[2018-01-20] MEDS: aspirin 81mg tab.chew PO SCH (07:37)
[2018-01-20] MEDS: omega-3 acid ethyl esters 1GM capsule PO SCH ×2 (07:37→20:26)
[2018-01-20] MEDS: albuterol 2.5 MG/3 ML nebule NEB SCH ×4 (07:40→19:12)
[2018-01-20] MEDS: BUDESONIDE 0.25 MG/2 ML AMPUL.NEB IH SCH ×2 (07:40→19:12)
[2018-01-20] MEDS: K and/or MAG REPLACEMENT MC SCH (08:00)
[2018-01-20] MEDS: diphenhydrAMINE 25mg capsule PO PRN ×2 (08:36→14:57)
[2018-01-21 03:00] VITALS: BP 111/72
[2018-01-21 05:58] LABS: BASOPHILS % (AUTO) 0.5 % (0-1); EOSINOPHILS # (AUTO) 0.5 X10'3 (0-0.9); EOSINOPHILS % (AUTO) 5.8 % (0-6); HEMATOCRIT 33.4 % (42.0-52.0); HEMOGLOBIN 11.5 g/dl (14.0-17.9); LYMPHOCYTES % (AUTO) 11.5 % (21-51); MEAN CORPUSCULAR HEMOGLOBIN 35.7 PG (27.0-31.0); MEAN CORPUSCULAR HGB CONC 34.5 % (33.0-36.5); MEAN CORPUSCULAR VOLUME 103.4 FL (78-98); MEAN PLATELET VOLUME 9.5 FL (7.4-10.4); MONOCYTES # (AUTO) 0.9 X10'3 (0-0.9); MONOCYTES % (AUTO) 10.2 % (2-12); NEUTROPHILS # (AUTO) 6.6 X10'3 (1.8-7.7); PLATELET COUNT 128 X10'3 (140-440); RED BLOOD COUNT 3.23 X10'6 (4.70-6.10)
[2018-01-21 06:00] VITALS: BP 111/75
[2018-01-21 06:53] LABS: ALBUMIN 2.6 G/DL (3.4-5.0); ANION GAP 7 (8-16); BLOOD UREA NITROGEN 18 MG/DL (7-18); BUN/CREATININE RATIO 14.5 (5.4-32.0); CALCIUM 8.6 MG/DL (8.5-10.1); CHLORIDE 103 MMOL/L (99-107); CREATININE 1.24 MG/DL (0.60-1.10); GLUCOSE 86 MG/DL (70-104); POTASSIUM 4.5 MMOL/L (3.5-5.1); SODIUM 137 MMOL/L (135-145); TOTAL CARBON DIOXIDE 26.6 MMOL/L (24-32); eGFR 59 ML/MIN
[2018-01-21 07:04] LABS: MAGNESIUM 1.8 MG/DL (1.5-2.4)
[2018-01-21] MEDS: K and/or MAG REPLACEMENT MC SCH (08:00)
[2018-01-21] MEDS: BUDESONIDE 0.25 MG/2 ML AMPUL.NEB IH SCH ×2 (08:01→20:46)
[2018-01-21] MEDS: albuterol 2.5 MG/3 ML nebule NEB SCH ×4 (08:01→20:46)
[2018-01-21] MEDS: omega-3 acid ethyl esters 1GM capsule PO SCH ×2 (08:21→20:05)
[2018-01-21] MEDS: potassium Cl 20 mEq SR tablet PO SCH ×2 (08:22→20:04)
[2018-01-21] MEDS: docusate sod 100mg capsule PO SCH ×2 (08:22→20:05)
[2018-01-21] MEDS: aspirin 81mg tab.chew PO SCH (08:23)
[2018-01-21] MEDS: atorvastatin 20mg tablet PO SCH (08:23)
[2018-01-21] MEDS: magnesium Cl slow-release 64mg tablet PO SCH ×2 (08:24→20:04)
[2018-01-21] MEDS: pantoprazole 40mg Tablet.DR PO SCH (08:24)
[2018-01-21] MEDS: metoprolol tartrate 12.5mg (1/2 tablet) PO SCH ×2 (08:24→20:05)
[2018-01-21] MEDS: HYDROcodone/acetaminophen 10/325mg tab PO PRN ×2 (08:31→22:02)
[2018-01-21] MEDS: diphenhydrAMINE 25mg capsule PO PRN ×2 (08:32→22:10)
[2018-01-21 11:00] VITALS: BP 109/80
[2018-01-21 15:00] VITALS: BP 108/71
[2018-01-21] MEDS: amiodarone 200mg tablet PO SCH ×2 (16:12→20:05)
[2018-01-21 19:00] VITALS: BP 112/67
[2018-01-21] MEDS ORDERED: amiodarone 200mg tablet PO SCH (20:00)
[2018-01-21 23:00] VITALS: BP 143/68
[2018-01-22 05:41] LABS: ALBUMIN 2.6 G/DL (3.4-5.0); ANION GAP 5 (8-16); BLOOD UREA NITROGEN 17 MG/DL (7-18); BUN/CREATININE RATIO 14.8 (5.4-32.0); CALCIUM 8.8 MG/DL (8.5-10.1); CHLORIDE 102 MMOL/L (99-107); CREATININE 1.15 MG/DL (0.60-1.10); GLUCOSE 93 MG/DL (70-104); MAGNESIUM 1.9 MG/DL (1.5-2.4); POTASSIUM 4.9 MMOL/L (3.5-5.1); SODIUM 136 MMOL/L (135-145); TOTAL CARBON DIOXIDE 29.1 MMOL/L (24-32); eGFR 64 ML/MIN
[2018-01-22 05:43] LABS: BASOPHILS % (AUTO) 0.4 % (0-1); EOSINOPHILS # (AUTO) 0.5 X10'3 (0-0.9); EOSINOPHILS % (AUTO) 4.9 % (0-6); HEMATOCRIT 33.5 % (42.0-52.0); HEMOGLOBIN 11.6 g/dl (14.0-17.9); LYMPHOCYTES # (AUTO) 1.1 X10'3 (1.1-4.8); LYMPHOCYTES % (AUTO) 10.1 % (21-51); MEAN CORPUSCULAR HEMOGLOBIN 36.2 PG (27.0-31.0); MEAN CORPUSCULAR HGB CONC 34.8 % (33.0-36.5); MEAN PLATELET VOLUME 9.5 FL (7.4-10.4); MONOCYTES # (AUTO) 1.1 X10'3 (0-0.9); MONOCYTES % (AUTO) 10.7 % (2-12); NEUTROPHILS # (AUTO) 7.9 X10'3 (1.8-7.7); NEUTROPHILS % (AUTO) 73.9 % (42-75); PLATELET COUNT 160 X10'3 (140-440); RED BLOOD COUNT 3.22 X10'6 (4.70-6.10); RED CELL DISTRIBUTION WIDTH 12.8 % (11.5-14.5); WHITE BLOOD COUNT 10.6 X10'3 (4.5-11.0)
[2018-01-22 06:00] VITALS: BP 105/72
[2018-01-22] MEDS: BUDESONIDE 0.25 MG/2 ML AMPUL.NEB IH SCH (07:05)
[2018-01-22] MEDS: albuterol 2.5 MG/3 ML nebule NEB SCH ×2 (07:06→11:00)
[2018-01-22] MEDS: pantoprazole 40mg Tablet.DR PO SCH (07:52)
[2018-01-22] MEDS: omega-3 acid ethyl esters 1GM capsule PO SCH (07:53)
[2018-01-22] MEDS: metoprolol tartrate 12.5mg (1/2 tablet) PO SCH ×2 (07:53→08:00)
[2018-01-22] MEDS: potassium Cl 20 mEq SR tablet PO SCH (07:53)
[2018-01-22] MEDS: magnesium Cl slow-release 64mg tablet PO SCH (07:53)
[2018-01-22] MEDS: atorvastatin 20mg tablet PO SCH (07:54)
[2018-01-22] MEDS: aspirin 81mg tab.chew PO SCH (07:54)
[2018-01-22] MEDS: docusate sod 100mg capsule PO SCH (07:54)
[2018-01-22] MEDS: HYDROcodone/acetaminophen 10/325mg tab PO PRN ×2 (07:58→09:47)
[2018-01-22] MEDS: K and/or MAG REPLACEMENT MC SCH (08:00)
[2018-01-22] MEDS: diphenhydrAMINE 25mg capsule PO PRN (08:08)
[2018-01-22 08:12] VITALS: BP 99/66
[2018-01-22] MEDS ORDERED: METO25TA6 PO (09:07)
[2018-01-22] MEDS ORDERED: HYDR-3972 PO (09:07)
[2018-01-22] MEDS ORDERED: AMIO200T40 PO (09:07)
[2018-01-22] MEDS ORDERED: COL100C PO (09:07)
[2018-01-22 11:00] VITALS: BP 101/65
== END 2018-01-22 13:00 | disposition home health service (06) | DRG 234 ==
LOC: ER 18:58 → ED HOLD 01-13 00:40 → PCU 3S 01-13 01:24 → OBSVTOIN 01-13 15:02 → ICU 2S 01-14 11:15 → PCU 3S 01-19 12:43
PROVIDERS: ADMIT Hospitalist; ATTEND Thoracic Surgery (Cardiothoracic Vascular Surgery)
PROC: B32T1ZZ Computerized Tomography (CT Scan) of Left Pulmonary Artery using Low Osmolar Contrast (ICD-10-PCS; 2018-01-12)
PROC: B3201ZZ Computerized Tomography (CT Scan) of Thoracic Aorta using Low Osmolar Contrast (ICD-10-PCS; 2018-01-12)
PROC: B32S1ZZ Computerized Tomography (CT Scan) of Right Pulmonary Artery using Low Osmolar Contrast (ICD-10-PCS; 2018-01-12)
PROC: 4A023N7 Measurement of Cardiac Sampling and Pressure, Left Heart, Percutaneous Approach (ICD-10-PCS; 2018-01-14)
PROC: B41F1ZZ Fluoroscopy of Right Lower Extremity Arteries using Low Osmolar Contrast (ICD-10-PCS; 2018-01-14)
PROC: B3111ZZ Fluoroscopy of Right Brachiocephalic-Subclavian Artery using Low Osmolar Contrast (ICD-10-PCS; 2018-01-14)
PROC: B3121ZZ Fluoroscopy of Left Subclavian Artery using Low Osmolar Contrast (ICD-10-PCS; 2018-01-14)
PROC: B2111ZZ Fluoroscopy of Multiple Coronary Arteries using Low Osmolar Contrast (ICD-10-PCS; 2018-01-14)
PROC: B2151ZZ Fluoroscopy of Left Heart using Low Osmolar Contrast (ICD-10-PCS; 2018-01-14)
PROC: 021109W Bypass Coronary Artery, Two Arteries from Aorta with Autologous Venous Tissue, Open Approach (ICD-10-PCS; 2018-01-16)
PROC: 06BQ4ZZ Excision of Left Saphenous Vein, Percutaneous Endoscopic Approach (ICD-10-PCS; 2018-01-16)
PROC: B246ZZ4 Ultrasonography of Right and Left Heart, Transesophageal (ICD-10-PCS; 2018-01-16)
PROC: 5A1221Z Performance of Cardiac Output, Continuous (ICD-10-PCS; 2018-01-16)
PROC: 02HV33Z Insertion of Infusion Device into Superior Vena Cava, Percutaneous Approach (ICD-10-PCS; 2018-01-16)
PROC: B548ZZA Ultrasonography of Superior Vena Cava, Guidance (ICD-10-PCS; 2018-01-16)
PROC: 02100Z9 Bypass Coronary Artery, One Artery from Left Internal Mammary, Open Approach (ICD-10-PCS; principal; 2018-01-16 07:15)
DX: I21.4 Non-ST elevation (NSTEMI) myocardial infarction (principal); N17.9 Acute kidney failure, unspecified; I50.40 Unspecified combined systolic (congestive) and diastolic (congestive) heart failure; I13.0 Hypertensive heart and chronic kidney disease with heart failure and stage 1 through stage 4 chronic kidney disease, or unspecified chronic kidney disease; I25.5 Ischemic cardiomyopathy; N18.9 Chronic kidney disease, unspecified; F17.200 Nicotine dependence, unspecified, uncomplicated; I25.110 Atherosclerotic heart disease of native coronary artery with unstable angina pectoris; I25.2 Old myocardial infarction; I48.91 Unspecified atrial fibrillation; J44.9 Chronic obstructive pulmonary disease, unspecified; F41.9 Anxiety disorder, unspecified; B19.20 Unspecified viral hepatitis C without hepatic coma; I71.2 Thoracic aortic aneurysm, without rupture; E78.5 Hyperlipidemia, unspecified; R91.1 Solitary pulmonary nodule; Z90.5 Acquired absence of kidney; Z95.5 Presence of coronary angioplasty implant and graft; Z79.899 Other long term (current) drug therapy; Z79.82 Long term (current) use of aspirin; Z85.528 Personal history of other malignant neoplasm of kidney; Z86.73 Personal history of transient ischemic attack (TIA), and cerebral infarction without residual deficits; Z82.49 Family history of ischemic heart disease and other diseases of the circulatory system
CPT/HCPCS: 0232T; 93306; 93312; 93325; 93459; 96372; 96374; 96375; 99285; 36415; 36600; 71045; 71275; 80048; 80053; 80061; 81003; 82330; 82435; 82803; 82947; 82948; 83036; 83735; 84100; 84132; 84295; 84484; 85018; 85025; 85384; 85610; 85730; 86022; 86885; 86900; 86901; 86920; 87070; 88305; 93005; 93880; 93971; 94002; 94060; 94640; 94668; 94760; 97116; 97162; 97530; 99152; 99153; A4620; A6212; A6213; A6253; A6255; A6257; A6258; A6402; A6446; A6449; A7000; A7015; A7048; A9270; C1751; C1769; G0378; J0282; J0690; J1200; J1644; J1650; J1815; J1940; J2001; J2060; J2150; J2250; J2270; J2370; J2405; J2440; J2704; J2720; J2930; J3010; J3370; J3475; J3480; J3490; J7030; J7120; P9045; P9047; Q0163; Q9967